=== PATIENT | female | born 1995 | race African-American/Black ===

== ENCOUNTER 2022-11-19 13:21 | Emergency (ER) | payer MEDICAID ==
[~2022-11-19] VITALS: Ht 165.1 cm; Wt 73.5 kg
[2022-11-19] MEDS ORDERED: IV NS 0.9% 1,000 ML BAG IV ONE (15:00)
[2022-11-19] MEDS ORDERED: LORAZEPAM INJ 2 MG/ML VIAL IVP ONE (15:00)
[2022-11-19 15:27] LABS: BASOPHILS % (AUTO) 0.4 % (0.0-2.0); EOSINOPHILS % (AUTO) 0.6 % (0.0-6.0); HEMATOCRIT 43 % (33-45); HEMOGLOBIN 13.8 g/dL (11.5-14.8); LYMPHOCYTES % (AUTO) 21.3 % (20.0-44.0); MEAN CORPUSCULAR HGB CONC 32 g/dl (31.0-36.0); MEAN CORPUSCULAR VOLUME 92 fL (82-100); MONOCYTES # (AUTO) 0.7 K/uL (0.1-1.30); MONOCYTES % (AUTO) 7.3 % (2.0-12.0); NEUTROPHILS # (AUTO) 6.5 K/uL (1.8-8.9); NEUTROPHILS % (AUTO) 70.4 % (43.0-81.0); PLATELET COUNT (AUTO) 280 K/uL (150-450); RED BLOOD CELL COUNT(AUTO) 4.67 MIL/uL (4.0-5.2); WHITE BLOOD COUNT (AUTO) 9.2 K/uL (4.3-11.0)
[2022-11-19 15:36] LABS: MAGNESIUM 2.1 mg/dL (1.8-2.4)
[2022-11-19 15:37] LABS: CALCIUM, SERUM 9.6 mg/dL (8.5-10.1); CARBON DIOXIDE 29 mmol/L (21-32); CHLORIDE 103 mmol/L (98-107); CREATININE 0.9 mg/dL (0.6-1.3); GLUCOSE 95 mg/dL (74-106); POTASSIUM 3.5 mmol/L (3.5-5.1); SODIUM SERUM 139 mmol/L (136-145); UREA NITROGEN, BLOOD 5 mg/dL (7-18)
[2022-11-19 15:45] LABS: ALANINE AMINOTRANSFERASE 17 U/L (12-78); ALBUMIN 4.3 g/dL (3.4-5.0); ALKALINE PHOSPHATASE 69 U/L (46-116); ASPARTATE AMINOTRANSFERASE 22 U/L (15-37); BILIRUBIN,DIRECT 0.2 mg/dL (0.0-0.2); TOTAL PROTEIN, SERUM 8.3 g/dL (6.4-8.2)
[2022-11-19 15:48] LABS: ALCOHOL, BLOOD < 3 mg/dL (0-0)
[2022-11-19 16:06] LABS: THYROID STIMULATING HORMONE 0.016 uIU/mL (0.358-3.74)
[2022-11-19] MEDS ORDERED: LORAZEPAM INJ 2 MG/ML VIAL ONE (16:17)
--- NOTE | 2022-11-19 16:48 | NUR ---
URINE SAMPLE OBTAINED
[2022-11-19] MEDS ORDERED: ACETAMINOPHEN 325 MG TABLET ONE (16:52)
[2022-11-19] MEDS ORDERED: ACETAMINOPHEN 325 MG TABLET PO ONE (17:00)
[2022-11-19] MEDS ORDERED: HYDR-500 PO ×2 (17:51→18:08)
[2022-11-19] MEDS ORDERED: IBUPROFEN 600 MG TABLET ONE (17:58)
[2022-11-19] MEDS ORDERED: IBUPROFEN 600 MG TABLET PO ONE (18:00)
--- NOTE | 2022-11-19 18:12 | NUR ---
Patient discharged to home in stable condition. Written and verbal after care instructions given. Patient verbalizes understanding of instruction.
--- NOTE | 2022-11-19 18:16 | NUR ---
IV removed. Catheter intact and site benign. Pressure and 4x4 applied to site. No bleeding noted.
[2022-11-19 18:17] VITALS: BP 132/97
== END 2022-11-19 18:18 | disposition home or self-care (01) ==
LOC: ER 13:25
DX: F41.9 Anxiety disorder, unspecified (principal); R00.2 Palpitations; Z60.2 Problems related to living alone; Z79.899 Other long term (current) drug therapy
CPT/HCPCS: 99284; 96374; 96361; 93005; 85025; 80048; 80076; 83735; 84703; 36415; 84439; 84443; 80320; 80307; J2060; J7030; G0480